=== PATIENT | female | born 1935 | race Caucasian/White ===

== ENCOUNTER 2019-03-12 09:38 | Emergency (ER) | payer MEDICARE, MEDICAID ==
[~2019-03-12] VITALS: Ht 160 cm; Wt 68.2 kg
[2019-03-12] MEDS ORDERED: AMLO5TAB9 PO (09:52)
[2019-03-12] MEDS ORDERED: FAMO20 PO (09:52)
[2019-03-12] MEDS ORDERED: SIMV-261 PO (09:52)
[2019-03-12] MEDS ORDERED: OMEP20 PO (09:52)
[2019-03-12] MEDS ORDERED: METF-960 PO (09:52)
[2019-03-12] MEDS ORDERED: METO25 PO (09:52)
[2019-03-12 12:20] VITALS: BP 120/59
== END 2019-03-12 12:59 | disposition home or self-care (01) ==
LOC: EMS 09:40
DX: H53.9 Unspecified visual disturbance (principal); E11.9 Type 2 diabetes mellitus without complications; E78.00 Pure hypercholesterolemia, unspecified; I10 Essential (primary) hypertension; Z79.84 Long term (current) use of oral hypoglycemic drugs; Z79.899 Other long term (current) drug therapy